=== PATIENT | male | born 1960 | race Caucasian/White ===

== ENCOUNTER 2022-05-01 09:15 | Outpatient (RCR) | payer OTHER, SELFPAY | END 2022-05-25 23:59 | disposition home or self-care (01) | PROVIDERS: PCP Family Medicine; Visit Provider Psychiatry & Neurology Neurology | DX: G20 Parkinson's disease (principal); Z51.89 Encounter for other specified aftercare | CPT/HCPCS: 97110; 97163; 97530 ==